=== PATIENT | female | born 1975 | race African-American/Black ===

== ENCOUNTER 2016-09-28 04:43 | Emergency (ER) | payer OTHER ==
--- NOTE | ~2016-09-28 | EKG ---
PATIENT: YOANA RYAN UNIT #: [id number] Ventricular Rate: 68 BPM Atrial Rate: 68 BPM P-R Interval: 162 ms QRS Duration: 96 ms Q-T Interval: 400 ms QTC Calculation(Bezet): 425 ms P [place]: 26 degrees Calculated R [place]: 10 degrees Calculated T [place]: 16 degrees Diagnosis Line: Normal sinus rhythm Diagnosis Line: Normal ECG Diagnosis Line: When compared with ECG of 28-SEP-2016 04:06, Diagnosis Line: (unconfirmed) Diagnosis Line: No significant change was found Diagnosis Line: Confirmed by GNOZALES VALDEZ MD ([id number]) on Diagnosis Line: 09/28/2016 12:03:14 PM INTERPRETING MD: MAYUR
--- NOTE | ~2016-09-28 | CR72 ---
[facility] A Service of [facility] RADIOLOGY TEXT RESULTS PATIENT: YOANA RYAN LOCATION: [facility] : [birth year] UNIT #: [id number] AGE: [address]: Félix Leslie MD SEX: F ORDER DR: [id number] [facility] [address] [place], [place] [address] [id number] E MR#: [id number] Acc #: [id number] NAME: YOANA RYAN : 1975 SEX: F STUDY DATE/TIME: 09/28/2016 3:53 UNIT: [facility] ROOM: STUDY DESCRIPTION: CR Chest Single View Portable Attending Physician: Er Doctor [facility] Ordering Physician: Carter Galicia M.D. Primary Care Physician: Fany Youssef M.D. MEDICAL IMAGING REPORT This report is preliminary unless electronic signature is present EXAM Portable AP view of the chest COMPARISON June 12, 2016. INDICATION 41-year-old female with chest pain tonight. FINDINGS Cardiomediastinal silhouette is within normal limits for portable technique. No evidence of pneumothorax or pleural effusion. No evidence of acute airspace disease. No pneumothorax or pleural effusion. IMPRESSION No acute radiographic abnormality of the chest. Dictated by... Javed Reid M.D. THIS IS AN ELECTRONICALLY VERIFIED REPORT Javed Reid M.D. at 09/30/2016 9:40 PM KELBY/carmelina TD: 09/28/2016 08:36 JOB #: [id number] MEDICAL IMAGING REPORT COPY
[2016-09-28 05:10] LABS: BASOPHIL# 0.1 X10e3 (0-0.3); BASOPHIL% 0.6 % (0-2.5); EOSINOPHIL# 0.2 X10e3 (0-0.7); HEMATOCRIT 30.5 % (35.0-45.0); HEMOGLOBIN 9.9 gm/dL (12.0-16.0); LYMPHOCYTE# 2.2 X10e3 (1.0-3.5); LYMPHOCYTE% 24.1 % (17.0-45.0); MEAN CELL VOLUME 83.8 FL (83-96); MEAN CORPUSCULAR HEMOGLOBIN 27.1 PG (28-34); MEAN CORPUSCULAR HGB CONC 32.3 g/dL (30-36); MEAN PLATELET VOLUME 7.7 FL (6.5-11.5); MONOCYTE# 0.7 X10e3 (0-1.0); MONOCYTE% 7.6 % (3.0-12.0); NEUTROPHIL# 5.9 X10e3 (1.5-7.1); NEUTROPHIL% 65.7 % (40-75); PLATELET COUNT 228 X10e3 (140-420); RED BLOOD COUNT 3.64 X10e (3.90-5.30); WHITE BLOOD COUNT 8.9 X10e3 (4.0-10.5)
[2016-09-28 05:13] LABS: DIFF IND NO
[2016-09-28 05:50] LABS: ALBUMIN SERUM 3.9 g/dL (3.5-5.0); ALKALINE PHOSPHATASE 68 U/L (32-92); ALT (SGPT) 30 U/L (10-40); AST (SGOT) 71 U/L (10-42); BILIRUBIN, DIRECT 0.1 mg/dL (0.0-0.2); BILIRUBIN,INDIRECT 0.5 mg/dL (0.0-0.9); BILIRUBIN,TOTAL 0.6 mg/dL (0.2-2.0); BLOOD UREA NITROGEN 14 mg/dL (9-23); CALCIUM SERUM 9.3 mg/dL (8.4-10.2); CARBON DIOXIDE 28 mmol/L (22-31); CHLORIDE 107 mmol/L (100-111); CREATININE SERUM 0.7 mg/dL (0.6-1.4); GLOM FILT RATE Estimated ABOVE60 mL/min (>60); GLUCOSE FASTING 110 mg/dL (70-110); POTASSIUM 4.1 mmol/L (3.5-5.1); PROTEIN TOTAL SERUM 7.2 g/dL (6.0-8.3); SODIUM 139 mmol/L (135-145)
[2016-09-28 07:33] LABS: POC - CKMB <1.0 ng/mL (0.0-7.9); POC - TROPONIN <0.05 ng/mL (<=0.05)
== END 2016-09-28 07:43 | disposition home or self-care (01) ==
LOC: CED 04:43
PROVIDERS: Emergency Medicine
DX: R07.89 Other chest pain (principal)
CPT/HCPCS: 36415; 71010; 80048; 80076; 82553; 84484; 85025; 93005; 96372; 99284; J1885